=== PATIENT | male | born 1985 ===

== ENCOUNTER 2019-01-28 05:34 | Day surgery (SDC) | payer OTHER ==
[~2019-01-28] VITALS: Ht 174 cm; Wt 90.7 kg
[2019-01-28] VITALS (14 sets, daily range): BP systolic 117–146; BP diastolic 59–83
[~2019-01-28 05:34] MED LIST: NKM
[2019-01-28] MEDS ORDERED: oxyCONTIN 20mg tab ORAL ONE (06:00)
[2019-01-28] MEDS ORDERED: ceFAZolin 1gm IVPB IVPB ONE ×2 (06:00)
[2019-01-28] MEDS ORDERED: celeBREX 200mg Cap **SURGERY PATIENTS ONLY ORAL ONE (06:00)
--- NOTE | 2019-01-28 07:20 | Pre-Procedure Note/Attestation ---
Pre-Procedure Note/Attestation Complete Prior to Procedure Planned Procedure: left Procedure Narrative: knee diagnostic arthroscopy, possible acl reconstruction, possible menisectomy Indications for Procedure Pre-Operative Diagnosis: left knee interal derangment Attestation I attest that I discussed the nature of the procedure; its benefits; risks and complications; and alternatives (and the risks and benefits of such alternatives ), prior to the procedure, with the patient (or the patient's legal field representative/health education). I attest that, if there was a reasonable possibility of needing a blood transfusion, the patient (or the patient's legal field representative/health education) was given the [facility] standardized written summary, pursuant to the Blu [employer] Blood Safety Act ([place] Health and Safety Code # 1645, as amended). I attest that I re-evaluated the patient just prior to the surgery and that there has been no change in the patient's H&P, except as documented below: Ervin Holloway MD Jan 28, 2019 07:20
--- NOTE | 2019-01-28 07:20 | Operative Note - PDOC ---
Operative Note Operative Note Pre-op Diagnosis: left knee interal derangment Procedure: see op report Post-op Diagnosis: same as pre-op plus Operative Findings: consistent w/pre-op dx studies Anesthesia: regional Specimen: none Complications: none Condition: stable Estimated Blood Loss: none Implant(s) used?: Yes Ervin Holloway MD Jan 28, 2019 07:20
[2019-01-28] MEDS ORDERED: Ketorolac 30mg Inj ONE (07:26)
[2019-01-28] MEDS ORDERED: Kenalog-40 1ml Vial ONE (07:26)
[2019-01-28] MEDS ORDERED: Lidocaine 1% 10mg/ml/Epi 0.005mg/ml 30ml vial INJ ONE (07:27)
[2019-01-28] MEDS ORDERED: Duramorph PF 5mg/10ml amp ONE (07:27)
[2019-01-28] MEDS ORDERED: Bupivacaine 0.25% Inj 30ml INJ ONE (07:27)
[2019-01-28] MEDS ORDERED: HYDROcodone/Acetamin 5/325 tab ORAL PRN ×2 (07:30→08:45)
[2019-01-28] MEDS ORDERED: EPINEPHrine 1mg/1ml Amp ONE ×2 (08:11→08:32)
[2019-01-28] MEDS ORDERED: Ropivacaine 5mg/ml Vial 30ml INJ ONE (08:32)
[2019-01-28] MEDS ORDERED: LR 1000ml 1,000 ML IVLG SCH (08:35)
--- NOTE | 2019-01-28 08:35 | Anethesia Preoperative Eval ---
Anesthesia Pre-op PMH/ROS General Date of Evaluation: Jan 28, 2019 Time of Evaluation: 09:01 Anesthesiologist: Kristen ASA Score: ASA 2 Mallampati Score Class I : Soft palate, uvula, fauces, pillars visible Class II: Soft palate, uvula, fauces visible Class III: Soft palate, base of uvula visible Class IV: Only hard plate visible Mallampati Classification: Class II Surgeon: Jewel Diagnosis: L Knee Pain Surgical Procedure: L Knee ACL Repair Anesthesia History: none Family History: no anesthesia problems Allergies: Coded Allergies: No Known Allergies (Unverified , 01/27/19) Medications: see eMAR Patient NPO?: Yes Past Medical History Other: obesity - BMI 32 Anesthesia Pre-op Phys. Exam Physician Exam Last Vital Signs Date Time Temp Pulse Resp B/P (MAP) Pulse Ox O2 Delivery O2 Flow Rate FiO2 01/28/19 06:08 Room Air 01/28/19 05:59 97.0 58 18 122/59 97 Constitutional: NAD Neurologic: CN 2-12 intact Cardiovascular: RRR Respiratory: CTA Gastrointestinal: S/NT/ND Airway Exam Mallampati Score: Class II MO: full ROM: full Teeth: intact Anesthesia Pre-op A/P Risk Assessment & Plan Assessment: ASA 2 Plan: GA, SED, Left Adductor/Femoral Block Status Change Before Surgery: No Pre-Antibiotics Dru grams Ancef IV Given Within 1 Hr of Incision: Yes Time Given: 09:16 Pepe Peterson MD Jan 28, 2019 08:35
[2019-01-28] MEDS ORDERED: Meperidine 50mg/ml Inj(FOR RIGORS ONLY) IVP PRN (08:45)
[2019-01-28] MEDS ORDERED: Labetalol 5mg/ml 20ml vial IV PRN (08:45)
[2019-01-28] MEDS ORDERED: LORazepam Inj 2mg/ml 1ml IV PRN (08:45)
[2019-01-28] MEDS ORDERED: Atropine Sulfate 0.4mg/ml inj IVP PRN (08:45)
[2019-01-28] MEDS ORDERED: Metoclopramide 10mg/2ml Inj IVP PRN (08:45)
[2019-01-28] MEDS ORDERED: oxyCODONE HCL/Acetaminophen 5/325mg ORAL PRN (08:45)
[2019-01-28] MEDS ORDERED: DiphenhydrAMINE 50mg/ml Inj IVP PRN (08:45)
[2019-01-28] MEDS ORDERED: Acetaminophen (Non formulary) 100 ML IV ONE (08:45)
[2019-01-28] MEDS ORDERED: Ketorolac 30mg Inj IV PRN ×2 (08:45)
[2019-01-28] MEDS ORDERED: fentaNYL 100 mcg/2 mL IV PRN (08:45)
[2019-01-28] MEDS ORDERED: HYDROcodone/Acetamin 7.5/325 tab ORAL PRN (08:45)
[2019-01-28] MEDS ORDERED: Hydromorphone 0.5mg/0.5ml inj IVP PRN (08:45)
[2019-01-28] MEDS ORDERED: Midazolam 2mg/2ml Inj IVP PRN (08:45)
[2019-01-28] MEDS ORDERED: Sodium Chloride 10ml vial INJ ONE ×2 (08:46→08:54)
[2019-01-28] MEDS ORDERED: Dexamethasone 4mg/ml vial ONE ×2 (08:46→08:48)
[2019-01-28] MEDS ORDERED: Lidocaine 1% MPF 10mg/ml 5ml ONE (08:53)
[2019-01-28] MEDS ORDERED: LR 1000ml ONE (09:00)
--- NOTE | 2019-01-28 09:46 | Immediate Post-Op Evaluation ---
Immediate Post-Op Evalulation Immediate Post-Op Evalulation Procedure: L ACL Repair Date of Evaluation: Jan 28, 2019 Time of Evaluation: 11:33 IV Fluids: 500 LR Blood Products: 0 Estimated Blood Loss: 50 Urinary Output: 0 Blood Pressure Systolic: 133 Blood Pressure Diastolic: 68 Pulse Rate: 92 Respiratory Rate: 16 O2 Sat by Pulse Oximetry: 100 Temperature (Fahrenheit): 97.4 Pain Score (1-10): 2 Nausea: No Vomiting: No Complications 0 Patient Status: awake, reacts, patent, extubated, none Hydration Status: adequate Dru Grams Ancef IV Given Within 1 Hr of Incision: Yes Time Given: 09:16 Pepe Peterson MD Jan 28, 2019 09:46
--- NOTE | 2019-01-28 09:48 | 48 Hour Post Anesthesia Eval ---
Post Anesthesia Evaluation Procedure: L ACL Repair Date of Evaluation: Jan 28, 2019 Time of Evaluation: 13:43 Blood Pressure Systolic: 131 0: 67 Pulse Rate: 89 Respiratory Rate: 18 Temperature (Fahrenheit): 98.2 O2 Sat by Pulse Oximetry: 100 Airway: patent Nausea: No Vomiting: No Pain Intensity: 2 Hydration Status: adequate Cardiopulmonary Status: Stable Mental Status/LOC: patient returned to baseline Follow-up Care/Observations: 0 Post-Anesthesia Complications: 0 Follow-up care needed: ready to discharge Pepe Peterson MD Jan 28, 2019 09:48
[2019-01-28] MEDS ORDERED: NS Irrig 4000ml IRRIG ONE (09:54)
[2019-01-28] MEDS ORDERED: Tylenol #3 tab (300mg/30mg) ORAL PRN (16:01)
[2019-01-28] MEDS ORDERED: D5 1/2NS 1,000 ML IV SCH (16:01)
[2019-01-28] MEDS ORDERED: HYDROmorphone 1mg/ml Carpuject SUBQ PRN (16:01)
--- NOTE | 2019-01-28 17:30 | Operative Note - Dictated ---
DATE OF OPERATION: 01/28/2019 PREOPERATIVE DIAGNOSES: 1. Left knee anterior cruciate ligament tear. 2. Left knee medial meniscus tear. POSTOPERATIVE DIAGNOSES: 1. Left knee complete anterior cruciate ligament tear. 2. Left knee bucket-handle medial meniscus tear. 3. Left knee medial femoral chondral damage grade 2. PROCEDURES: 1. Left knee arthroscopic anterior cruciate ligament reconstruction with tibialis anterior allograft. 2. Partial meniscectomy bucket-handle medial meniscus tear. 3. Synovectomy medial, lateral, and patellofemoral compartment. SURGEON: Ervin Holloway M.D. ANESTHESIA: Femoral adductor with general. INDICATIONS FOR PROCEDURE: The patient is a pleasant gentleman, who has significant pain in his left knee. He had MRI, which showed a complete ACL tear and obvious meniscal tear as well. He failed conservative treatment and elected to undergo left knee arthroscopic ACL reconstruction with tibialis anterior allograft and possible meniscus repair versus debridement. Risks, limitations, expectations, and complications of procedure were discussed in detail. All questions addressed. DESCRIPTION OF PROCEDURE: After informed consent was obtained, the patient was brought to the operating room and placed under femoral adductor general anesthesia. The patient's left leg was prepped and draped in a sterile manner. Time-out was performed. Examination under anesthesia showed positive Nithya test as well as reverse pivot shift test. The tibialis anterior allograft was then prepared on the back table and tensioned. Inferolateral stab incision was then made. Trocar was introduced into the knee joint. This was hypertrophic fat pad in the retropatellar space area. Medial gutter was free from loose bodies. Medial compartment was entered. There was a bucket-handle tear of medial meniscus. The ACL was completely torn off the femoral insertion. Lateral side was free of any meniscal chondral damage. The stump of the ACL was debrided. Partial meniscectomy was performed. Femoral tunnel and tibial tunnels were prepared. The tibialis anterior graft was then placed in the intercondylar notch and secured with appropriate fixation. There was no impingement with range of motion of the graft. Instruments removed. Portal sites were closed with 3-0 Monocryl sutures and Steri-Strips. ESTIMATED BLOOD LOSS: None. COMPLICATIONS: None. SPECIMENS: None. IMPLANTS: Include: 1. Tibialis anterior allograft. 2. A Biomet suture relay. 3. Tibial interference screw. Ervin Holloway M.D. DR: Sravanthi JOB#: [id number] CC:
== END 2019-01-28 14:10 | disposition home or self-care (01) ==
LOC: SUR 05:34
DX: S83.512A Sprain of anterior cruciate ligament of left knee, initial encounter (principal); S83.212A Bucket-handle tear of medial meniscus, current injury, left knee, initial encounter; X58.XXXA Exposure to other specified factors, initial encounter; Y93.9 Activity, unspecified; Y92.9 Unspecified place or not applicable; E66.9 Obesity, unspecified; Z68.30 Body mass index [BMI] 30.0-30.9, adult
CPT/HCPCS: 29876; 29881; 29888; C1713; J0171; J0690; J1100; J1170; J1885; J2250; J2405; J2795; J3010; J3490; 94003; 94150